=== PATIENT | male | born 1995 | race African-American/Black ===

== ENCOUNTER 2016-12-24 16:46 | Emergency (ER) | payer OTHER ==
[~2016-12-24] VITALS: Ht 175.3 cm; Wt 95.2 kg
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
[~2016-12-24 16:46] MED LIST: KEFLEX500 M1 PO; NAPROSYN500 MG PO; NO MEDICATIONS
== END 2016-12-24 18:12 | disposition home or self-care (01) ==
LOC: SED 16:46
DX: S39.012A Strain of muscle, fascia and tendon of lower back, initial encounter (principal); S29.012A Strain of muscle and tendon of back wall of thorax, initial encounter; S16.1XXA Strain of muscle, fascia and tendon at neck level, initial encounter; V43.62XA Car passenger injured in collision with other type car in traffic accident, initial encounter
CPT/HCPCS: 72040; 72072; 72100; 99284